=== PATIENT | female | born 1995 | race Caucasian/White ===

== ENCOUNTER 2018-06-17 05:58 | Emergency (ER) | payer OTHER ==
[~2018-06-17] VITALS: Ht 162.6 cm; Wt 63.5 kg
[2018-06-17] MEDS ORDERED: BACTRIM DS TAB1 EACH PO (06:26)
[2018-06-17 06:35] VITALS: BP 125/81
== END 2018-06-17 06:44 | disposition home or self-care (01) ==
LOC: M.ERS 05:58
DX: T88.0XXA Infection following immunization, initial encounter (principal); L03.113 Cellulitis of right upper limb; F17.210 Nicotine dependence, cigarettes, uncomplicated